=== PATIENT | female | born 1985 | race Caucasian/White ===

== ENCOUNTER 2024-01-08 12:17 | Emergency (ER) | payer MEDICAID ==
[~2024-01-08] VITALS: Ht 157.5 cm; Wt 77.1 kg
[2024-01-08] MEDS ORDERED: KETO10TA2 PO (13:12)
[2024-01-08] MEDS ORDERED: AMOX-430 PO (13:12)
[2024-01-08] MEDS ORDERED: HYDR-3980 PO (13:12)
[2024-01-08] MEDS ORDERED: KETOROLAC TROMETHAMINE 15 MG/ML VIAL ONE (13:24)
[2024-01-08] MEDS ORDERED: KETOROLAC TROMETHAMINE INJ 30 MG/ML VIAL ONE (13:25)
[2024-01-08] MEDS: KETOROLAC TROMETHAMINE INJ 60 MG/2 ML VIAL IM ONE (13:28)
[2024-01-08 13:35] VITALS: BP 120/78; TEMP 97.9; O2SAT 100
== END 2024-01-08 13:37 | disposition home or self-care (01) ==
LOC: ER 12:19
DX: K04.7 Periapical abscess without sinus (principal); I10 Essential (primary) hypertension
CPT/HCPCS: 99283; 96372; J1885